=== PATIENT | male | born 1985 | race Caucasian/White ===

== ENCOUNTER 2016-08-02 00:41 | Emergency (ER) | payer OTHER ==
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
[2016-08-02 02:04] LABS: CHLORIDE,CL 98 mmol/L (98-110); SODIUM,NA 133 mmol/L (136-146)
[2016-08-02] MEDS ORDERED: Sodium Chloride 0.9% 1,000 ML IV ONE (02:40)
[2016-08-02 02:52] LABS: ACETAMINOPHEN < 3.0 ug/mL
[2016-08-02] MEDS ORDERED: MVI, Adult with Vitamin K 10 ML, Thiamine 100 MG, Folic Acid 1 MG in Sodium Chloride 0.... IV ONE ×4 (03:11)
[2016-08-02] MEDS ORDERED: Cyanocobalamin (Vitamin B12) 1,000 MCG/ML SDV IM ONE (03:12)
[2016-08-02] MEDS ORDERED: LORazepam 2 MG/ML MDV IVPUSH ONE (05:20)
[2016-08-02 05:59] VITALS: BP 120/74
--- NOTE | 2016-08-02 13:00 | CR ---
EXAM DATE: 08/02/16 PATIENT'S AGE: 30 Patient: TRACE PIZANO Facility: [place], [place] Site . Site : [id number] Study: XRay Chest [id number]/28/2017 2:33:02 AM Ordering Physician: Doctor Camacho Final Report: INDICATION: delirium tremens TECHNIQUE: Chest radiograph 1 view COMPARISON: None FINDINGS: Cardiovascular and mediastinum: The cardiac silhouette is normal in appearance and size. Mediastinum is within normal limits. Lungs and pleural space: Both lungs are unremarkable in appearance. No sign of pleural effusion. No pneumothorax is seen. Bones and soft tissues: No significant findings. Bilateral metallic nipple rings noted. IMPRESSION: 1. No acute cardiopulmonary disease seen. Dictated by: Glenn Avery MD @ 08/02/2016 02:39:56 (Electronic Signature) Report Signed by Proxy and Original Signed Document filed in the Medical Record. MTDD
== END 2016-08-02 05:25 ==
LOC: MW.ED 00:41
DX: F20.9 Schizophrenia, unspecified (principal); R79.89 Other specified abnormal findings of blood chemistry; Z79.899 Other long term (current) drug therapy
CPT/HCPCS: 36415; 71010; 80053; 80305; 81001; 82140; 84443; 84484; 85025; 93005; 96361; 96365; 96372; 96375; 99285; G0480; J2060; J3411; J3420; J7040